=== PATIENT | male | born 1995 | race Caucasian/White ===

== ENCOUNTER 2023-06-04 08:05 | Emergency (ER) | payer SELFPAY ==
--- NOTE | ~2023-06-04 | XR_ITS ---
EXAMINATION:XR cervical spine 4-5V DATE: 06/04/2023 08:40 INDICATION: Left-sided neck and shoulder pain TECHNIQUE: AP, lateral, left and right oblique, and odontoid views of the cervical spine are provided . COMPARISON: None FINDINGS: 24 degrees cervicothoracic levoscoliosis measured between C5 and T5 and centered at T3. Sagittal alig nment is normal. Odontoid is intact. Normal atlantoaxial interval. Vertebral body heights are normal . Mild disc height loss with small endplate osteophytes at C4-C5 and C5-C6. 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 This contributes to minimal to mild neural foramina l stenosis at a few levels on both the left and right. Prevertebral soft tissues are normal. IMPRESSION: 1. 24 degrees cervicothoracic levoscoliosis with mild cervical spondylosis. Reviewed, dictated and finalized at location L.
[2023-06-04 08:13] VITALS: BP 136/83; PULSE 79; RESP 16; TEMP 37; O2SAT 99
--- NOTE | 2023-06-04 08:31 | ED.GENADULT ---
HPI - General Adult General Chief complaint: Extremity Injury, Upper Stated complaint: Left Shoulder Pain Source: patient Mode of arrival: ambulatory Limitations: no limitations History of Present Illness HPI narrative: Patient presents for evaluation of neck pain for the last 4 days. He cannot identify any precipitating cause or injury. Pain is intermittent, that he describes as catching and rates as 5/10 in severity. Laying down and certain movements make his symptoms worse. He has tried tylenol and has also applied Icy Hot with mild improvement in her symptoms thereafter. He denies radicular component. No paresthesias. No loss of ROM. 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 Related Data Allergies Allergy/AdvReac Type Severity Reaction Status Date / Time No Known Allergies Allergy Verified 06/04/23 08:19 Review of Systems Review of Systems: CONSTITUTIONAL: Denies fever, chills, or sweats. EYES: Denies visual changes, redness, or discharge. ENT: Denies rhinorrhea, congestion, sore throat, or otalgia. CARDIOVASCULAR: Denies chest pain, palpitations, or edema. RESPIRATORY: Denies cough or dyspnea. GASTROINTESTINAL: Denies abdominal pain, nausea, vomiting, or diarrhea. GENITOURINARY: Denies dysuria or hematuria. SKIN: Denies rash or itching. MUSCULOSKELETAL: Reports neck pain. Denies back pain, joint pain, or myalgia. NEUROLOGIC: Denies headache, numbness, dizziness, or weakness. PSYCHIATRIC: Denies anxiety or depression. [facility] Past Medical History Medical History History of abdominal hernia Surgical History Surgical History History of hernia repair Family History Family History (Updated 06/04/23 @ 08:35 by CICI Joseph, ) Mother Family history non-contributory Social History Social History Smoking packs per day: 0.5 Smoking cigarettes per day: 10.0 Smoking status: Current every day smoker Substance use: current Substance use type: marijuana Living arrangements: with family Gender identity (if verbalized by the patient): Male Spiritual care concerns: No Exam Narrative: GENERAL: Well-appearing, well-nourished, and in no acute distress. HEAD: Normocephalic, atraumatic. EYES: PERRLA and EOMI. ENT: Nares clear, no rhinorrhea or epistaxis. Mucous membranes moist. Oropharynx without tonsillar hypertrophy exudate or other lesions. Bilateral TMs pearly stack nonbulging NECK: Supple. No adenopathy or masses. No carotid bruits or JVD. No tenderness in midline or paraspinous muscles of cervical spine. CHEST: Clear to auscultation. No respiratory distress. No wheezes rales or rhonchi HEART: Regular rate and rhythm. No murmur heard. Normal peripheral pulses. ABDOMEN: Soft, nontender, nondistended, normal active bowel sounds. EXTREMITIES: Normal range of motion. No edema. SKIN: Warm, dry, no rash. NEURO: No focal deficits. Alert and oriented x3. PSYCH: Normal mood and affect. Course Course Emergency Course: This is a 27-year-old male who presented for evaluation of neck pain. X-ray showed cervicothoracic level scoliosis with mild cervical spondylosis. Will tx with ibuprofen and flexeril. Follow up with primary provider. Go to the ER for worsening symptoms. Pt in agreement with plan of care. Level of Care: Express Care Visit Vital Signs Vital signs: Vital Signs Temperature 37.0 C 06/04/23 08:13 Pulse Rate 79 06/04/23 08:13 Respiratory Rate 16 06/04/23 08:13 Blood Pressure 136/83 06/04/23 08:13 Pulse Oximetry 99 06/04/23 08:13 Oxygen Delivery Room Air 06/04/23 08:13 Temperature 37.0 C 06/04/23 08:13 Pulse Rate 79 06/04/23 08:13 Respiratory Rate 16 06/04/23 08:13 Blood Pressure 136/83 06/04/23 08:13 Pulse Oximetry 99 06/04/23 08:13 Oxygen
== END 2023-06-04 09:18 | disposition home or self-care (01) ==
PROVIDERS: Emergency Provider Nurse Practitioner
DX: M79.18 Myalgia, other site (principal); M41.9 Scoliosis, unspecified; F17.210 Nicotine dependence, cigarettes, uncomplicated
CPT/HCPCS: 72050; 99213; G0463